=== PATIENT | female | born 1945 | race Caucasian/White ===

== ENCOUNTER 2017-11-10 18:43 | Emergency (ER) | payer OTHER ==
[2017-11-10 18:51] VITALS: PULSE 61
[2017-11-10] MEDS ORDERED: ACETAMINOPHEN 325 MG TAB PO ONE (20:03)
[2017-11-10 20:44] LABS: PLATELET COUNT 215 10^3/uL (150-400)
--- NOTE | 2017-11-10 22:06 | EDPHY ---
H & P Stated Complaint: R knee hurts;no direct injury but has been walking a lot on concrete - Personal History Current Tetanus Diphtheria and Acellular Pertussis (TDAP): Yes - Medical/Surgical History Other PMH: HTN. cholesterol - Social History Smoking Status: Former smoker Time Seen by Provider: 11/10/17 19:50 HPI/ROS: CHIEF COMPLAINT: Right knee pain HISTORY OF PRESENT ILLNESS: This is a 72-year-old female presents with right knee pain. No trauma. She has had some knee discomfort for the last few months in has been wearing a cloth brace. However, the pain became acutely worse over the last 2-3 days. She now notices that the knee is swollen and warm. Pain has increased markedly and she is unable to bear weight because of it. She has been taking Tylenol with minimal relief. She has also tried icing. She has had some subjective fevers and chills and had nausea yesterday. She was on a short airplane flight today, from [place] to [place]. No immobilization. She has some pain behind her knee but no significant calf pain. REVIEW OF SYSTEMS: A ten point review of systems was performed and is negative with the exception of the items mentioned in the HPI. Past medical history: 1. Hypertension 2. Hyperlipidemia 3. Chronic kidney disease Social history: She lives with her . No tobacco use. 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 General Appearance: Alert. Vital signs reviewed. Blood pressure 182/63 at triage. Eyes: Pupils equal and round, no conjunctival injection, no discharge. Anicteric. Neck: No lymphadenopathy, supple. Respiratory: Lungs are clear to auscultation; no wheezes, rales, or rhonchi. Cardiovascular: Regular rate and rhythm; no murmur, rub, or gallop. Skin: Normal color. No rashes. Extremities: No lower extremity edema, no calf tenderness or swelling. Right knee effusion. There is warmth but no erythema of the right knee. Full active range of motion of the right knee but some pain with flexion. Pulses: 2+ dorsalis pedis pulse on the right. Neurological: Alert and oriented. Moving all four extremities easily and equally. 5/5 strength right lower extremity. Sensation intact to light touch over both lower extremities. Psychiatric: Normal affect. (Ana Hidalgo) Constitutional: Initial Vital Signs Temperature (C) 36.9 C 11/10/17 18:48 Heart Rate 61 11/10/17 18:48 Respiratory Rate 18 11/10/17 18:48 Blood Pressure 182/63 H 11/10/17 18:48 O2 Sat (%) 95 11/10/17 18:48 O2 Delivery Mode Room Air Allergies/Adverse Reactions: Sulfa (Sulfonamide Antibiotics) Allergy (Unknown, Verified 11/10/17 18:46) "goes into my joints and stays there" Home Medications: Medication Instructions Recorded Aspirin EC [Aspirin EC 81 mg (*)] 81 mg PO DAILY 11/10/17 Atorvastatin Calcium [Lipitor 40 40 mg PO 11/10/17 mg (*)] FLUoxetine [PROzac] 10 mg PO 11/10/17 Metoprolol Tartrate [Lopressor 50 50 mg PO 11/10/17 mg (*)] Omeprazole Magnesium [Prilosec Otc] 20 mg PO 11/10/17 buPROPion [Wellbutrin] 100 mg PO 11/10/17 predniSONE [Prednisone] 10 mg PO DAILY 12 Days tab.ds.pk 11/11/17 Medical Decision Making - Diagnostics Imaging Results: Imaging Impressions Knee X-Ray 11/10/17 20:02 Impression: Mild degenerative change tricompartment right knee, more predominant in the medial and patellofemoral compartment. Underlying chondrocalcinosis. Suprapatellar joint effusion. Procedures: Right knee aspiration: Indication: Knee pain, effusion, warmth. Risks and benefits were explained to the patient and she is given her verbal consent undergo aspiration of the right knee joint. Using sterile technique knee was prepped, draped, and anesthetized with 1% lidocaine. 10 cc of slightly turbid synovial fluid was withdrawn from the lateral aspect of the right knee joint. Patient tolerated the procedure well. The fluid sent to the laboratory for analysis. (Ana Hidalgo) ED Course/Re-evaluation: Acute worsening of chronic knee pain with a knee effusion and skin warmth. I am concerned about a septic joint. She is not febrile. CBC shows normal white blood cell count. Sedimentation rate is normal, CRP is elevated at 52.7. She was given Tylenol 650 mg for pain relief. She does not want any stronger pain medication. Because of her chronic kidney disease she does not take NSAIDs. (Ana Hidalgo) 12:30 a.m.- The patient remained stable throughout my shift. I have followed up on her synovial fluid analysis which preliminary demonstrated CPPD crystals as well as about 20,000 white blood cells. This is consistent with pseudogout. Though the patient does have white blood cells in the fluid, quantity is consistent with pseudogout and I doubt she has a septic joint, given less than 50,000 in the WBCs. I will refer her to Orthopedics for possible corticosteroid injection. She is concerned about NSAID use because she was told not to use these for hypertension induced nephropathy. Her creatinine is normal today and I did discuss this with her, however she would prefer to avoid these. Given her symptoms have been going on for about 3 days, she is not a candidate for colchicine. I will give her a prednisone prescription with taper. I have instructed her to continue using Tylenol, elevating her knee, using compression and ice. She is in agreement with this plan and will be discharged home with her . (Sowmya Redmond) Differential Diagnosis: I considered a differential diagnosis that includes but is not limited to septic or joint, gout, pseudogout, degenerative joint disease, DVT, strain, and sprain. (Ana Hidalgo) - Data Points Laboratory Results: Laboratory Results 11/10/17 20:35 11/10/17 20:35 11/10/17 11/10/17 11/10/17 22:00 20:35 20:35 WBC 7.55 10^3/uL 10^3/uL (3.80-9.50) RBC 5.26 10^6/uL 10^6/uL (4.18-5.33) Hgb 15.3 g/dL g/dL (12.6-16.3) Hct 45.5 % % (38.0-47.0) MCV 86.5 fL fL (81.5-99.8) MCH 29.1 pg pg (27.9-34.1) MCHC 33.6 g/dL g/dL (32.4-36.7) RDW 13.1 % % (11.5-15.2) Plt Count 215 10^3/uL 10^3/uL (150-400) MPV 10.4 fL fL (8.7-11.7) Neut % (Auto) 62.2 % % (39.3-74.2) Lymph % (Auto) 24.5 % % (15.0-45.0) [place] % (Auto) 11.1 % % (4.5-13.0) Eos % (Auto) 1.5 % % (0.6-7.6) Baso % (Auto) 0.3 % % (0.3-1.7) Nucleat RBC Rel Count 0.0 % % (0.0-0.2) Absolute Neuts (auto) 4.70 10^3/uL 10^3/uL (1.70-6.50) Absolute Lymphs (auto) 1.85 10^3/uL 10^3/uL (1.00-3.00) Absolute Monos (auto) 0.84 10^3/uL H 10^3/uL (0.30-0.80) Absolute Eos (auto) 0.11 10^3/uL 10^3/uL (0.03-0.40) Absolute Basos (auto) 0.02 10^3/uL 10^3/uL (0.02-0.10) Absolute Nucleated RBC 0.00 10^3/uL 10^3/uL (0-0.01) Immature Gran % 0.4 % % (0.0-1.1) Immature Gran # 0.03 10^3/uL 10^3/uL (0.00-0.10) ESR 9 MM/HR MM/HR (0-30) Sodium 139 mEq/L mEq/L (135-145) Potassium 4.2 mEq/L mEq/L (3.5-5.2) Chloride 100 mEq/L mEq/L (97-110) Carbon Dioxide 22 mEq/l mEq/l (22-31) Anion Gap 17 mEq/L H mEq/L (8-16) BUN 26 mg/dL H mg/dL (7-23) Creatinine 1.0 mg/dL mg/dL (0.6-1.0) Estimated GFR 55 Glucose 103 mg/dL H mg/dL (70-100) Calcium 9.7 mg/dL mg/dL (8.5-10.4) C-Reactive Protein 52.7 mg/L H mg/L (<10.0) Fl Pathologist Review Pending Synovial Source SYNOVIAL Synovial Color YELLOW H (CLS/PALE YL) Synovial Appearance CLOUDY H (CLEAR) Synovial WBC 92649 /mm3 H /mm3 (0-150) Synovial RBC 4975 /mm3 H /mm3 (0-0) Synovial Neutrophils 91 % H % (0-25) Synovial Lymphocytes 3 % % Synov Monos/Macrophage 6 % % Synovial Crystals Pending Synovial Glucose 84 mg/dL mg/dL (55-113) Synovial Albumin 2.2 g/dL g/dL Synovial LDH 1876 IU/L IU/L Medications Given: Discontinued Medications Acetaminophen (Tylenol) 650 mg PO EDNOW ONE Stop: 11/10/17 20:04 Last Admin: 11/10/17 20:32 Dose: 650 mg Departure - Departure Disposition: Home, Routine, Self-Care Clinical Impression: Pseudogout of right knee Condition: Good Instructions: Pseudogout (ED) Additional Instructions: Please make sure to take prednisone as prescribed. I would recommend that you follow up with the orthopedist doctor listed below. You can take Tylenol 650 mg every 6 hr as needed for pain. Please continue to use your knee wrap and ice as well as elevation. Referrals: ROSHAN VALENTIN [Other] - As per Instructions Shahram Romano MD [Medical Doctor] - As per Instructions Prescriptions: predniSONE [Prednisone] 10 mg PO DAILY 12 Days tab.ds.pk
[2017-11-11] MEDS ORDERED: predniSONE 20 MG TAB PO ONE (00:28)
[2017-11-11] MEDS ORDERED: ACETAMINOPHEN 500 MG TAB PO ONE (00:59)
[2017-11-11] MEDS ORDERED: ACETAMINOPHEN 500 MG TAB ONE (01:01)
[2017-11-11 01:12] VITALS: BP 152/74; RESP 16; TEMP 97.9; O2SAT 96
== END 2017-11-11 01:11 | disposition home or self-care (01) ==
PROC: 0S9C3ZZ Drainage of Right Knee Joint, Percutaneous Approach (ICD-10-PCS; principal; 2017-11-10)
DX: M10.9 Gout, unspecified (principal); I12.9 Hypertensive chronic kidney disease with stage 1 through stage 4 chronic kidney disease, or unspecified chronic kidney disease; N18.9 Chronic kidney disease, unspecified; Z87.891 Personal history of nicotine dependence; Z79.82 Long term (current) use of aspirin
CPT/HCPCS: 20610; 73564; J7512

== ENCOUNTER 2018-09-02 21:10 | Emergency (ER) | payer OTHER ==
--- NOTE | 2018-09-02 22:04 | EDPHY ---
H & P Stated Complaint: atraumatic L shouler pain, headache Time Seen by Provider: 09/02/18 21:50 HPI/ROS: Chief Complaint: Left arm pain HPI: 73-year-old woman presenting with 2 days of pain in her posterior left upper arm. Patient states that 2 days ago was intermittent but since noon today is been relatively constant. At worst is a 2/10. She notices it more when she moves her arm but does notice a constant ache at rest. She has a history of hyperlipidemia and hypertension is concerned about possible of her heart being the cause. No chest pain. No shortness of breath. Is not exertional. She does states she has been working out of [place]"recently but denies any other lifting injury. No falls. No fevers or chills. No leg pain or swelling. No recent travel. She has not have a family history of coronary artery disease. Her dull ache has been constant for the last 10 hr. ROS: 10 systems were reviewed and were negative except those elements noted in the HPI. PMH: Hyperlipidemia, hypertension, chronic kidney disease, pseudogout Social History: No smoking, no alcohol, no recreational drug use Family History: non-contributory Physical Exam: Gen: Awake, Alert, No Distress HEENT: Nose: no rhinorrhea Eyes: PERRLA, EOMI Mouth: Moist mucosa Neck: Supple, no JVD Chest: nontender, lungs clear to auscultation Heart: S1, S2 normal, no murmur Abd: Soft, non-tender, no guarding Back: no CVA tenderness, no midline tenderness Ext: no edema, she does have some tenderness in the posterior aspect forearm with some spasm in her triceps muscle reproducing her presenting complaint. No joint tenderness. Full range of motion of her shoulder and elbow without any complaint. No bony tenderness. Skin: no rash Neuro: CN II-XII intact, Sensation grossly intact, Strength 5/5 in bilateral upper and lower extremities - Personal History Current Tetanus/Diphtheria Vaccine: Yes Current Tetanus Diphtheria and Acellular Pertussis (TDAP): Yes - Medical/Surgical History Hx Asthma: No Hx Chronic Respiratory Disease: No Hx Diabetes: No Hx Cardiac Disease: No Hx Renal Disease: No Hx Cirrhosis: No Hx Alcoholism: No Hx HIV/AIDS: No Hx Splenectomy or Spleen Trauma: No Other PMH: HTN, gout, MTHFR gene mutation, decreased kidney function, cholesterol, miscariage, ovarian cyst, - Social History Smoking Status: Former smoker Constitutional: Initial Vital Signs Temperature (C) 36.4 C 09/02/18 21:22 Heart Rate 66 09/02/18 21:22 Respiratory Rate 20 09/02/18 21:22 Blood Pressure 181/74 H 09/02/18 21:22 O2 Sat (%) 92 09/02/18 21:22 O2 Delivery Mode Room Air Allergies/Adverse Reactions: Sulfa (Sulfonamide Antibiotics) Allergy (Unknown, Verified 09/02/18 21:11) "goes into my joints and stays there" Home Medications: Medication Instructions Recorded Aspirin EC [Aspirin EC 81 mg (*)] 81 mg PO DAILY 11/10/17 FLUoxetine [PROzac] 10 mg PO 11/10/17 Metoprolol Tartrate [Lopressor 50 50 mg PO 11/10/17 mg (*)] Omeprazole Magnesium [Prilosec Otc] 20 mg PO 11/10/17 buPROPion [Wellbutrin] 100 mg PO 11/10/17 Amlodipine Besylate 09/02/18 Caffeine 09/02/18 Estrace 09/02/18 Fiber 09/02/18 Foltabs 800 Tablet 09/02/18 Magnesium 09/02/18 Restasis Multidose 09/02/18 VITAMIN E 09/02/18 Vitamin A 09/02/18 Vitamin C 09/02/18 Medical Decision Making - Diagnostics EKG Interpretation: ECG time 9:34 p.m., sinus rhythm with a rate of 62, normal axis, normal intervals, no acute ST or T-wave changes. ED Course/Re-evaluation: 73-year-old with left arm pain which is reproducible. Pain is been present for 10 hr. Troponins negative. ECG is unremarkable. I think this is musculoskeletal and not cardiac in nature. Patient has been reassured. Will discharge with follow-up with primary care physician, return for any concerns. - Data Points Laboratory Results: Laboratory Results 09/02/18 22:08 09/02/18 22:08 09/02/18 09/02/18 09/02/18 22:14 22:08 22:08 WBC 6.69 10^3/uL 10^3/uL (3.80-9.50) RBC 4.88 10^6/uL 10^6/uL (4.18-5.33) Hgb 14.1 g/dL g/dL (12.6-16.3) Hct 41.7 % % (38.0-47.0) MCV 85.5 fL fL (81.5-99.8) MCH 28.9 pg pg (27.9-34.1) MCHC 33.8 g/dL g/dL (32.4-36.7) RDW 13.3 % % (11.5-15.2) Plt Count 197 10^3/uL 10^3/uL (150-400) MPV 10.2 fL fL (8.7-11.7) Neut % (Auto) 53.0 % % (39.3-74.2) Lymph % (Auto) 32.1 % % (15.0-45.0) [place] % (Auto) 11.1 % % (4.5-13.0) Eos % (Auto) 3.4 % % (0.6-7.6) Baso % (Auto) 0.3 % % (0.3-1.7) Nucleat RBC Rel Count 0.0 % % (0.0-0.2) Absolute Neuts (auto) 3.54 10^3/uL 10^3/uL (1.70-6.50) Absolute Lymphs (auto) 2.15 10^3/uL 10^3/uL (1.00-3.00) Absolute Monos (auto) 0.74 10^3/uL 10^3/uL (0.30-0.80) Absolute Eos (auto) 0.23 10^3/uL 10^3/uL (0.03-0.40) Absolute Basos (auto) 0.02 10^3/uL 10^3/uL (0.02-0.10) Absolute Nucleated RBC 0.00 10^3/uL 10^3/uL (0-0.01) Immature Gran % 0.1 % % (0.0-1.1) Immature Gran # 0.01 10^3/uL 10^3/uL (0.00-0.10) Sodium 140 mEq/L mEq/L (135-145) Potassium 4.2 mEq/L mEq/L (3.3-5.0) Chloride 110 mEq/L mEq/L (97-110) Carbon Dioxide 22 mEq/l mEq/l (22-31) Anion Gap 8 mEq/L mEq/L (6-14) BUN 22 mg/dL mg/dL (7-23) Creatinine 1.0 mg/dL mg/dL (0.6-1.0) Estimated GFR 54 Glucose 104 mg/dL H mg/dL (70-100) Calcium 9.3 mg/dL mg/dL (8.5-10.4) POC Troponin I 0.00 ng/mL ng/mL (0.00-0.08) Point of Care Test Results: Chemistry 09/02/18 22:14 POC Troponin I 0.00 ng/mL ng/mL (0.00-0.08) Departure - Departure Disposition: Home, Routine, Self-Care Clinical Impression: Muscle strain Condition: Good Instructions: Muscle Strain (ED) Additional Instructions: You may take acetaminophen, 1000 mg every 6 hr as needed for pain. Follow up with primary care physician in 3-4 days if symptoms are not improving. Return to the emergency department for increasing chest pain, shortness of breath, fevers, chills, cough, or any other concerns. Referrals: VEDA VALENTIN [Other] - As per Instructions
[2018-09-02 22:21] LABS: PLATELET COUNT 197 10^3/uL (150-400)
[2018-09-02 22:53] VITALS: BP 160/74
--- NOTE | 2018-09-03 04:35 | CPEKG ---
Test Reason : OPEN Blood Pressure : / mmHG Vent. Rate : 062 BPM Atrial Rate : 063 BPM P-R Int : 165 ms QRS Dur : 098 ms QT Int : 410 ms P-R-T Axes : 079 010 040 degrees QTc Int : 417 ms Sinus rhythm Atrial premature complex Probable left atrial enlargement Confirmed by Vasu Baker ([id number] on 09/03/2018 4:35:03 AM Referred By: Confirmed By:Vasu Baker
== END 2018-09-02 22:53 | disposition home or self-care (01) ==
DX: S46.912A Strain of unspecified muscle, fascia and tendon at shoulder and upper arm level, left arm, initial encounter (principal); E78.5 Hyperlipidemia, unspecified; I12.9 Hypertensive chronic kidney disease with stage 1 through stage 4 chronic kidney disease, or unspecified chronic kidney disease; N18.9 Chronic kidney disease, unspecified; M10.9 Gout, unspecified; X50.9XXA Other and unspecified overexertion or strenuous movements or postures, initial encounter; Y93.B9 Activity, other involving muscle strengthening exercises; Y92.9 Unspecified place or not applicable; Y99.9 Unspecified external cause status
CPT/HCPCS: 84484-PO